=== PATIENT | female | born 1940 | race Caucasian/White ===

== ENCOUNTER → 2016-03-29 | Outpatient (CLI) | payer BC ==
[2016-03-29 09:50] LABS: CHOLESTEROL/HDL RATIO 3.7
== END | disposition home or self-care (01) ==
LOC: C.LAB 08:03
PROVIDERS: ATTEND Nurse Practitioner Adult Health
DX: E78.5 Hyperlipidemia, unspecified (principal)

== ENCOUNTER → 2016-03-31 | Outpatient (CLI) | payer BC ==
--- NOTE | 2016-03-31 13:47 | MAMMOGRAPHY REPORT ---
UNILATERAL RIGHT DIGITAL DIAGNOSTIC MAMMOGRAM TOMOSYNTHESIS AND TARGETED RIGHT ULTRASOUND: 03/31/2016 CLINICAL HISTORY: Callback from screening mammogram for right breast asymmetry with possible archite ctural distortion. The patient reports a strong family history of breast cancer, but did test negat isauro for the BRCA gene. TECHNIQUE: Breast tomosynthesis in addition to standard 2D mammography was performed. Spot octavio dom right CC and MLO 2-D and tomosynthesis images were obtained. COMPARISON: Comparison is made to exams dated: 03/23/2016 mammogram, 10/07/2014 mammogram, 08/22/2013 mammogram, 04/17/2012 mammogram, 01/25/2011 mammogram, and 12/31/2009 mammogram - [facility]. BREAST COMPOSITION: The tissue of the right breast is heterogeneously dense, which may obscure smal l masses. FINDINGS: The previously described asymmetry with questionable architectural distortion in the righ t anterior breast along the posterior nipple line on the cc view effaces to a baseline appearance on the additional views, with appearance of this region similar to prior exams including the 2009 exam . No mass or architectural distortion is seen on the tomosynthesis images. Targeted ultrasound was performed of the right breast at 12:00, 6:00, and subareolar region, in the region of the asymmetry seen on one view only. No suspicious masses or other suspicious sonographic abnormalities are evident. IMPRESSION: ACR BI-RADS CATEGORY 2: BENIGN, TARGETED ULTRASOUND ACR BI-RADS CATEGORY 2: BENIGN The right breast asymmetry effaces on the additional views, without corresponding suspicious sonogra phic abnormality evident. Findings are benign and most compatible with normal fibroglandular tissue . There is no mammographic or targeted sonographic evidence of malignancy. A 1 year screening mammo gram is recommended. The patient has been verbally notified of the results. Approximately 10% of breast cancers are not detected with mammography. A negative mammographic repor t should not delay biopsy if a clinically suggestive mass is present. Xin Crawford M.D. /:03/31/2016 10:51:52 Resource Economist: Aelsia Ash, [facility] letter sent: Normal 1/2 BI-RADS Code: ACR BI-RADS Category 2: Benign Ultrasound BI-RADS: ACR BI-RADS Category 2: Benign
== END | disposition home or self-care (01) ==
LOC: C.MAMM 09:56
PROVIDERS: ATTEND Nurse Practitioner Adult Health
DX: N64.9 Disorder of breast, unspecified (principal)

== ENCOUNTER → 2016-04-25 | Outpatient (CLI) | payer BC | END | disposition home or self-care (01) | LOC: C.PAPS 10:22 | PROVIDERS: ATTEND Obstetrics & Gynecology | DX: Z12.4 Encounter for screening for malignant neoplasm of cervix (principal) ==

== ENCOUNTER → 2017-04-27 | Outpatient (CLI) | payer BC ==
[2017-04-27 10:06] LABS: BASO % 0.6 %; BASO ABS # 0.05 K/uL (0-0.2); EOS % 2.2 %; EOS ABS # 0.18 K/uL (0-0.5); HEMATOCRIT 43.6 % (37-47); HEMOGLOBIN 14.3 g/dL (12.0-16.0); IG# 0.02 K/uL (0.00-0.02); LYMPH % 36.5 %; LYMPH ABS # 2.96 K/uL (1.2-3.4); MEAN CELL VOLUME 96.5 fL (80-100); MEAN CORPUSCULAR HEMOGLOBIN 31.6 pg (25-34); MEAN CORPUSCULAR HGB CONC 32.8 g/dl (32-36); MEAN PLATELET VOLUME 11.2 fL (7.4-10.4); MONO % 9.6 %; MONO ABS # 0.78 K/uL (0.11-0.59); NEUT % 50.9 %; NEUT ABS # 4.11 K/uL (1.4-6.5); PLATELET COUNT 209 K/uL (130-400); RED CELL DISTRIBUTION WIDTH CV 14.3 % (11.5-14.5); RED CELL DISTRIBUTION WIDTH SD 50.7 fL (36.4-46.3)
[2017-04-27 10:34] LABS: ALBUMIN 3.2 gm/dl (3.4-5.0); ALT/SGPT 23 U/L (12-78); AST/SGOT 17 U/L (15-37); BLOOD UREA NITROGEN 14 mg/dl (7-18); CALCIUM 8.9 mg/dl (8.5-10.1); CARBON DIOXIDE 27 mmol/L (21-32); CREATININE 0.92 mg/dl (0.60-1.20); GLUCOSE 89 mg/dl (70-99); POTASSIUM 4.2 mmol/L (3.5-5.1); SODIUM 142 mmol/L (136-145)
[2017-04-27 10:37] LABS: ALKALINE PHOSPHATASE 77 U/L (45-117); CHOLESTEROL 199 mg/dl (0-200); LDL CHOLESTEROL CALCULATED 117 mg/dl; TOTAL PROTEIN 6.7 gm/dl (6.4-8.2)
== END | disposition home or self-care (01) ==
LOC: C.LAB 08:56
PROVIDERS: ATTEND Neuromusculoskeletal Medicine & OMM
DX: Z00.00 Encounter for general adult medical examination without abnormal findings (principal); E55.9 Vitamin D deficiency, unspecified; E78.5 Hyperlipidemia, unspecified

== ENCOUNTER → 2017-10-12 | Outpatient (CLI) | payer BC | END | disposition home or self-care (01) | LOC: C.LAB 16:37 | PROVIDERS: ATTEND Obstetrics & Gynecology | DX: R39.9 Unspecified symptoms and signs involving the genitourinary system (principal) ==

== ENCOUNTER → 2017-10-25 | Outpatient (CLI) | payer BC | END | disposition home or self-care (01) | LOC: C.LABSPEC 17:56 | PROVIDERS: ATTEND Obstetrics & Gynecology | DX: N95.2 Postmenopausal atrophic vaginitis (principal) ==